=== PATIENT | female | born 1980 | race Caucasian/White ===

== ENCOUNTER 2018-02-02 23:32 | Emergency (ER) | payer MEDICAID ==
[~2018-02-02] VITALS: Ht 165.1 cm; Wt 63.5 kg
--- NOTE | 2018-02-02 23:33 | NUR ---
PT TO ER [facility] [employer] AND [employer] FOR SUICIDAL IDEATION. NO IMMEDIATE SIGNS OF DISTRESS NOTED. PT VITAL SIGNS STABLE. PT TO ER BED AND CHANGED INTO GOWN. SUICIDE PRECAUTIONS IMPLEMENTED. PT WAITING TO BE SEEN BY
[2018-02-02 23:48] LABS: BASOPHILS # (AUTO) 0.1 /CMM (0.0-0.2); BASOPHILS % (AUTO) 0.7 % (0.0-2.0); EOSINOPHILS % (AUTO) 2.2 % (0.0-6.0); HEMATOCRIT 39 % (33-45); HEMOGLOBIN 13.1 g/dL (11.5-14.8); LYMPHOCYTES # (AUTO) 3.2 /CMM (0.8-4.8); LYMPHOCYTES % (AUTO) 39.9 % (20.0-44.0); MEAN CORPUSCULAR HEMOGLOBIN 29 PG (26.0-33.0); MEAN CORPUSCULAR HGB CONC 34 g/dl (31.0-36.0); MEAN CORPUSCULAR VOLUME 85 fL (82-100); MONOCYTES # (AUTO) 0.5 /CMM (0.1-1.30); MONOCYTES % (AUTO) 5.6 % (2.0-12.0); NEUTROPHILS # (AUTO) 4.1 /CMM (1.8-8.9); NEUTROPHILS % (AUTO) 51.6 % (43.0-81.0); PLATELET COUNT (AUTO) 304 /CMM (150-450); RDW COEFFICIENT OF VARIATION 14.2 (11.5-15.0); RED BLOOD CELL COUNT(AUTO) 4.51 MIL/uL (4.0-5.2); WHITE BLOOD COUNT (AUTO) 8.1 K/uL (4.3-11.0)
[2018-02-03 00:02] LABS: APPEARANCE,URINE CLEAR (CLEAR); BILIRUBIN,URINE NEGATIVE (NEGATIVE); BLOOD, URINE NEGATIVE Ery/uL (NEGATIVE); COLOR,URINE YELLOW (YELLOW); KETONES,URINE NEGATIVE (NEGATIVE); LEUKOCYTE ESTERASE ,URINE NEGATIVE (NEGATIVE); NITRITE, URINE NEGATIVE (NEGATIVE); PROTEIN,URINE NEGATIVE (NEGATIVE); UGLUCOSE NEGATIVE (NEGATIVE); UROBILINOGEN,URINE 0.2 EU/dL (0.2)
[2018-02-03 00:04] LABS: CALCIUM, SERUM 8.9 mg/dL (8.5-10.1); CARBON DIOXIDE 30 mmol/L (21-32); CHLORIDE 103 mmol/L (98-107); CREATININE 0.7 mg/dL (0.6-1.3); GLUCOSE 102 mg/dL (74-106); POTASSIUM 3.5 mmol/L (3.5-5.1); SODIUM SERUM 138 mmol/L (136-145); UREA NITROGEN, BLOOD 15 mg/dL (7-18)
[2018-02-03 00:09] LABS: ALANINE AMINOTRANSFERASE 71 U/L (12-78); ALBUMIN 3.8 g/dL (3.4-5.0); ALKALINE PHOSPHATASE 71 U/L (46-116); ASPARTATE AMINOTRANSFERASE 40 U/L (15-37); BILIRUBIN,TOTAL 0.3 mg/dL (0.2-1.0); TOTAL PROTEIN, SERUM 7.4 g/dL (6.4-8.2)
[2018-02-03 00:10] LABS: ACETAMINOPHEN 0 ug/ml (10-30); ALCOHOL, BLOOD < 3 mg/dL (0-0); SALICYLATE 2.3 mg/dL (2.8-20.0)
--- NOTE | 2018-02-03 01:15 | NUR ---
EDUARDO SOLIS AT [facility] FOR EVAL.
--- NOTE | 2018-02-03 06:36 | NUR ---
PT RESTING IN GURNEY. NO SIGNS OF DISTRESS NOTED. PT VITAL SIGNS NORMAL. WILL CONT TO MONITOR PT.
--- NOTE | 2018-02-03 08:54 | NUR ---
Report given to Tammy PAGAN at [facility] for continuity of care
--- NOTE | 2018-02-03 08:58 | NUR ---
CALLED [facility] FOR BLS TRANSPORT, ETA 10-10:30AM.
[2018-02-03] MEDS ORDERED: LEVONORGESTREL 1.5 MG PO ×2 (09:00→09:21)
[2018-02-03] MEDS ORDERED: ACETAMINOPHEN 325 MG TABLET ONE (09:21)
[2018-02-03] MEDS ORDERED: ACETAMINOPHEN 650 MG/20.3 ML UDC PO ONE (09:30)
[2018-02-03 10:55] VITALS: BP 126/70
--- NOTE | 2018-02-03 10:55 | NUR ---
pt was picked up by [facility] for transoport to [facility]. vss
== END 2018-02-03 10:56 ==
LOC: ER 23:35
DX: R45.851 Suicidal ideations (principal); F11.10 Opioid abuse, uncomplicated; F15.10 Other stimulant abuse, uncomplicated; F12.10 Cannabis abuse, uncomplicated; F19.10 Other psychoactive substance abuse, uncomplicated; F31.9 Bipolar disorder, unspecified
CPT/HCPCS: 36415; 80048-TC; 80076-TC; 80305; 81000-TC; 84703-TC; 85025-TC; A4606; G0480; Z7610

== ENCOUNTER 2019-09-08 18:54 | Emergency (ER) | payer MEDICAID ==
[~2019-09-08] VITALS: Ht 167.6 cm; Wt 68.0 kg
--- NOTE | 2019-09-08 18:58 | NUR ---
[id number] W/ PD C/O BEING SUICIDAL, +PLAN TO RUN THROUGH TRAFFIC, PT TO BED 14, PT [id number], -SOB, NAD NOTED, PENDING MD CAMPOS
[2019-09-08 19:19] LABS: BASOPHILS # (AUTO) 0.1 /CMM (0.0-0.2); BASOPHILS % (AUTO) 0.7 % (0.0-2.0); HEMATOCRIT 43 % (33-45); LYMPHOCYTES # (AUTO) 2.8 /CMM (0.8-4.8); LYMPHOCYTES % (AUTO) 26.4 % (20.0-44.0); MEAN CORPUSCULAR HGB CONC 33 g/dl (31.0-36.0); MEAN CORPUSCULAR VOLUME 85 fL (82-100); MONOCYTES # (AUTO) 0.5 /CMM (0.1-1.30); MONOCYTES % (AUTO) 4.5 % (2.0-12.0); NEUTROPHILS # (AUTO) 7.2 /CMM (1.8-8.9); NEUTROPHILS % (AUTO) 67.4 % (43.0-81.0); PLATELET COUNT (AUTO) 444 /CMM (150-450); RED BLOOD CELL COUNT(AUTO) 4.99 MIL/uL (4.0-5.2); WHITE BLOOD COUNT (AUTO) 10.6 K/uL (4.3-11.0)
[2019-09-08 19:37] LABS: CALCIUM, SERUM 9.4 mg/dL (8.5-10.1); CARBON DIOXIDE 29 mmol/L (21-32); CHLORIDE 101 mmol/L (98-107); CREATININE 0.8 mg/dL (0.6-1.3); GLUCOSE 119 mg/dL (74-106); POTASSIUM 3.7 mmol/L (3.5-5.1); SODIUM SERUM 140 mmol/L (136-145); UREA NITROGEN, BLOOD 21 mg/dL (7-18)
[2019-09-08 19:50] LABS: ALANINE AMINOTRANSFERASE 25 U/L (12-78); ALBUMIN 4.1 g/dL (3.4-5.0); ALKALINE PHOSPHATASE 102 U/L (46-116); ASPARTATE AMINOTRANSFERASE 19 U/L (15-37); BILIRUBIN,DIRECT 0.1 mg/dL (0.0-0.2); BILIRUBIN,TOTAL 0.5 mg/dL (0.2-1.0); TOTAL PROTEIN, SERUM 8.1 g/dL (6.4-8.2)
[2019-09-08 19:54] LABS: ACETAMINOPHEN 0 ug/ml (10-30); ALCOHOL, BLOOD < 3 mg/dL (0-0); SALICYLATE 1.1 mg/dL (2.8-20.0)
--- NOTE | 2019-09-08 20:10 | NUR ---
URINE COLLECTED AND SENT TO THE LAB
[2019-09-08 20:23] LABS: APPEARANCE,URINE Clear (CLEAR); BILIRUBIN,URINE SMALL (NEGATIVE); BLOOD, URINE Negative Ery/uL (NEGATIVE); COLOR,URINE Yellow (YELLOW); KETONES,URINE 15 (NEGATIVE); LEUKOCYTE ESTERASE ,URINE Negative (NEGATIVE); NITRITE, URINE Negative (NEGATIVE); PH,URINE 5.5 (5.0-8.0); PROTEIN,URINE Negative (NEGATIVE); UGLUCOSE Negative (NEGATIVE); UROBILINOGEN,URINE 0.2 EU/dL (0.2)
[2019-09-08 20:57] LABS: BACTERIA,URINE 2+ /HPF (None Seen); MUCUS,URINE Many /LPF (None Seen)
--- NOTE | 2019-09-08 22:10 | NUR ---
CLINICAL INFORMATION FAXED TO [facility]
[2019-09-08] MEDS ORDERED: OLANZAPINE 5 MG TABLET ONE (22:13)
--- NOTE | 2019-09-08 22:26 | NUR ---
BERNARDA BEAN FROM [facility], UNABLE TO ACCEPT INSURANCE AT ANY OF THEIR FACILITIES
[2019-09-08] MEDS ORDERED: OLANZAPINE 5 MG TABLET PO ONE (22:30)
--- NOTE | 2019-09-08 23:15 | NUR ---
CALLED LATAS[facility] SHIPLEY FOR EVALUATION. LEFT MESSAGE. WILL RETURN CALL
--- NOTE | 2019-09-08 23:20 | NUR ---
PER QUINTEN RN PT SHOULD SEE THIRD OFFICER IN AM FOR PLACEMENT
--- NOTE | 2019-09-08 23:30 | NUR ---
PT SLEEPING, NAD NOTED, VS UPDATED.
--- NOTE | 2019-09-09 06:42 | NUR ---
PT RESTING COMFORTABLY IN BED. VITAL SIGNS STABLE. NO ACUTE DISTRESS NOTED AT THIS TIME. SITTER AT BEDSIDE, WILL CONTINUE TO MONITOR
--- NOTE | 2019-09-09 07:30 | NUR ---
PROVIDED W FOOD TRAY, TOLERATING PO WELL
--- NOTE | 2019-09-09 08:13 | NUR ---
[place] child protective services social worker seeing pt at this time.
--- NOTE | 2019-09-09 08:43 | NUR ---
Social service consult requested by MD for suicidal ideation with a plan. Per chart review and MD notes, pt is a 38-year-old Female with a history of psychiatric illness, brought in by ambulance and accompanied by police for evaluation of suicidal ideation. REEL STRIPPER met with the pt bedside. REEL STRIPPER introduced self, explained SW role and purpose of visit. Pt is alert and oriented x 4. Pt reports she resides in [place] with a friend. Pt. is a heroin and methamphetamine user and last used yesterday. Pt has a history of being in treatment programs. Pt denies alcohol use and smokes approximately 3 cigarettes per day. Pt receives $900 in [employer] monthly. Pt reports feeling depressed and suicidal with plan to run into traffic. Pt denies homicidal ideation and denies visual or auditory hallucinations. Pt is seeking voluntary psychiatric hospitalization at this time. Pt reports to have a psychiatric diagnosis of Schizophrenia, Borderline Personality Disorder, ADD and Bipolar Disorder. Pt takes clonidine, Klonopin and Robaxin. REEL STRIPPER contacted Steve at [facility] and was informed that pt has [facility] and will not be accepted in [facility] due to her insurance. REEL STRIPPER contacted [facility] and spoke with Rose who informed REEL STRIPPER to fax clinicals and they will assist. Clinicals faxed to intake at [facility] . REEL STRIPPER updated ED Director Cliff with aforementioned information.
--- NOTE | 2019-09-09 09:50 | NUR ---
[facility], WILL AWAIT A CALL BACK
[2019-09-09] MEDS ORDERED: CLON0.2T PO (11:53)
[2019-09-09] MEDS ORDERED: LEVO50TA8 PO (11:53)
[2019-09-09] MEDS ORDERED: CLON1TAB12 PO (11:53)
[2019-09-09] MEDS ORDERED: METH-406 PO (11:53)
[2019-09-09] MEDS ORDERED: TRAZ-257 PO (11:54)
[2019-09-09] MEDS ORDERED: clonazePAM 1 MG TABLET PO ONE (12:00)
--- NOTE | 2019-09-09 12:00 | NUR ---
RADIOLOGY PRACTITIONER ASSISTANT contacted [facility] for a f/up. RADIOLOGY PRACTITIONER ASSISTANT spoke to Victoria at who informed RADIOLOGY PRACTITIONER ASSISTANT she faxed clinicals to [facility], [facility], [facility], [facility] and [facility].
[2019-09-09] MEDS ORDERED: CLONIDINE HCL 0.1 MG TABLET ONE (12:04)
[2019-09-09] MEDS ORDERED: clonazePAM 1 MG TABLET ONE (12:05)
--- NOTE | 2019-09-09 13:02 | NUR ---
LUNCH TRAY PROVIDED, TOLERATING PO WELL.
--- NOTE | 2019-09-09 13:32 | NUR ---
PERSONNEL COUNSELOR met with pt again to assess for suicidal ideations. PERSONNEL COUNSELOR informed pt her Medi-sara is capitated to [facility] and [facility] is unable to accept her. Pt. got frustrated and stated, " I am just going to go kill myself." Pt continues to express suicidal ideation. PERSONNEL COUNSELOR consulted with Director of BA Cho, who requested for crisis team to evaluate the pt. PERSONNEL COUNSELOR informed ED staff to contact PERSONNEL COUNSELOR when crisis team geek squad manager Art is present.
--- NOTE | 2019-09-09 13:40 | NUR ---
Received call from Victoria in take at [facility] informing REAL ESTATE INSPECTOR pt has been accepted to [facility] located at [address] [place] [address] Joyce. Report called to . [facility] updated Dr. Fernández in ED and Andres with aforementioned information.
--- NOTE | 2019-09-09 13:49 | NUR ---
GISSELLE GAVE ACCEPTING INFO. PT WILL BE GOING TO [facility] ROOM [address] SUAREZ IS THE ACCEPTING. NUMBER FOR REPORT [phone]. [address]ESS [id number] [place] [address]. [place], [address].
--- NOTE | 2019-09-09 15:10 | NUR ---
REPORT GIVEN TO KARLA PAGAN FROM [facility].
--- NOTE | 2019-09-09 15:12 | NUR ---
CALLED [facility] FOR TRANSPORT TO [facility]. ETA 2029.
--- NOTE | 2019-09-09 15:18 | NUR ---
CALLED [facility] FOR TRANSPORT TO [facility]. ETA 1700. TRIP [id number].
[2019-09-09] MEDS ORDERED: CLONIDINE HCL 0.1 MG TABLET PO ONE (17:00)
[2019-09-09 17:12] VITALS: BP 121/64
--- NOTE | 2019-09-09 17:15 | NUR ---
Patient Tranfers to outside Facility: [facility] Physician: DR SUAREZ PATIENT PICKED UP BY [facility] [address] IN STABLE CONDITION, ALL BELONGINGS RETURNED TO PATIENT. ALL CLINICALS HANDED TO EMT TO BE GIVEN AT FACILITY.
[2019-09-09] MEDS ORDERED: TRAZODONE 50 MG TABLET PO ONE (22:00)
== END 2019-09-09 17:29 ==
LOC: ER 18:57
DX: R45.851 Suicidal ideations (principal); F15.10 Other stimulant abuse, uncomplicated; F32.9 Major depressive disorder, single episode, unspecified; F20.9 Schizophrenia, unspecified; F17.200 Nicotine dependence, unspecified, uncomplicated; Z88.1 Allergy status to other antibiotic agents; Z60.2 Problems related to living alone
CPT/HCPCS: 36415; 80048; 80076; 80305; 80307; 80329; 81001; 84703; 85025; 87077; 87086; 99285; G0480; 81000-TC